=== PATIENT | female | born 1990 | race Caucasian/White ===

== ENCOUNTER 2017-06-02 08:59 | Emergency (ER) | payer OTHER ==
[~2017-06-02] VITALS: Ht 170.2 cm; Wt 87.4 kg
[~2017-06-02 08:59] MED LIST: ALPRAZOLAM0.5 MG PO; BENADRYL25 MG PO; FIORICET 50-301 EACH PO; Glucophage PO; HUMALOG100 UNIT/1 SQ; IBUPROFEN800 MG PO; IMITREX25 MG PO; IMITREX6 MG/0.52 SC; INSULIN PUMP SCCONT; LAMICTAL100 MG PO; LAMICTAL150 M1 PO; METOCLOPRAMIDE10 MG PO; NAPROSYN500 MG PO; NOVOLOG 10100 UNITS/ SC; NOVOLOG MI100 UNIT/4 SC; Non-Formulary SC; PROMETHAZINE HC25 M1 PO; REGLAN10 MG PO; RIZATRIPTAN10 MG PO; TOPAMAX100 MG PO; TOPIRAMATE50 MG PO; TORADOL10 MG PO; Tylenol Regular Stre PO; VENLAFAXINE HC100 MG PO; VENLAFAXINE HC150 M1 PO; VITAMIN D1000 INTUN PO; VITAMIN D31000 UNI2 PO; XANAX0.5 MG PO; ZOFRAN ODT4 MG PO; ZOFRAN4 MG PO
[2017-06-02 09:36] LABS: POINT-OF-CARE METER ID UU13113702
[2017-06-02 11:55] LABS: ADD MIUA? YES; BILIRUBIN NEGATIVE; BLOOD LARGE; COLOR AMBER ((YELLOW)); GLUCOSE (STRIP) 50; KETONES 20; LEUKOCYTES NEGATIVE; NITRITE NEGATIVE; PROTEIN (STRIP) 100; SPECIFIC GRAVITY 1.027 (1.000-1.030); UROBILINOGEN 0.2 MG/DL (0.2-1.0)
[2017-06-02 12:00] LABS: AMPHETAMINE NEGATIVE (500 ng/mL); BENZODIAZEPINES PRESUMPTIVE POSITIVE (150 ng/mL); COCAINE NEGATIVE (150 ng/mL); METHADONE NEGATIVE (200 ng/mL); METHAMPHETAMINE NEGATIVE (500 ng/mL); OPIATES (MORPHINE) NEGATIVE (100 ng/mL); PHENCYCLIDINE NEGATIVE (25 ng/mL); THC CANNABINOIDS PRESUMPTIVE POSITIVE (50 ng/mL); TRICYCLIC ANTIDEPRESSANTS NEGATIVE (300 ng/mL)
[2017-06-02 12:01] LABS: ADD MEDTOX COMMENT Y; BACTERIA 3+ /HPF; BARBITURATES NEGATIVE (200 ng/mL); EPITHELIAL CELLS 3+ /HPF; INTERNAL CONTROLS VALID? YES; MUCUS 4+ /LPF; OXYCODONE NEGATIVE (100 ng/mL); PROPOXYPHENE NEGATIVE (300 ng/mL); UCUL ADDED? YES
[2017-06-02] MEDS ORDERED: MOTRIN600 MG PO (12:08)
[2017-06-02] MEDS ORDERED: ZOFRAN ODT4 MG PO (12:08)
[2017-06-02] MEDS ORDERED: KEFLEX500 MG PO (12:08)
[2017-06-02] MEDS ORDERED: IMITREX25 MG PO (12:15)
[2017-06-02 12:41] VITALS: BP 121/51
[2017-06-02 12:41] LABS: BENZODIAZEPINES QUANT VALUE 0 NG/ML; BENZODIAZEPINES, URINE SCREEN Negative (200 ng/mL)
== END 2017-06-02 12:46 | disposition home or self-care (01) ==
LOC: EME 08:59
PROVIDERS: Nurse Practitioner Family
DX: G43.909 Migraine, unspecified, not intractable, without status migrainosus (principal); N39.0 Urinary tract infection, site not specified; R11.2 Nausea with vomiting, unspecified; E10.9 Type 1 diabetes mellitus without complications; Z79.4 Long term (current) use of insulin; J45.909 Unspecified asthma, uncomplicated; F17.200 Nicotine dependence, unspecified, uncomplicated
CPT/HCPCS: 81003; 82948; 84999; 87086; 99281; 99284; J1200; J1885; J2405; J2765; J7030

== ENCOUNTER 2017-06-04 15:32 | Emergency (ER) | payer OTHER ==
[~2017-06-04] VITALS: Ht 170.2 cm; Wt 95.0 kg
[~2017-06-04 15:32] MED LIST changes: +KEFLEX500 MG PO; +MOTRIN600 MG PO
[2017-06-04] MEDS ORDERED: NAPROSYN500 MG PO (17:05)
[2017-06-04 17:15] VITALS: BP 104/83
== END 2017-06-04 17:41 | disposition home or self-care (01) ==
LOC: EME 15:32
DX: S80.02XA Contusion of left knee, initial encounter (principal); V49.40XA Driver injured in collision with unspecified motor vehicles in traffic accident, initial encounter; Y92.410 Unspecified street and highway as the place of occurrence of the external cause; E10.9 Type 1 diabetes mellitus without complications; Z79.4 Long term (current) use of insulin; F17.200 Nicotine dependence, unspecified, uncomplicated; F31.9 Bipolar disorder, unspecified
CPT/HCPCS: 73564; 99281; 99284; J1885

== ENCOUNTER 2017-06-22 17:28 | Emergency (ER) | payer OTHER ==
[~2017-06-22] VITALS: Ht 170.2 cm; Wt 89.7 kg
[2017-06-22] MEDS ORDERED: CLONAZEPAM0.5 MG PO (18:17)
[2017-06-22] MEDS ORDERED: EFFEXOR XR150 MG PO (18:17)
[2017-06-22] MEDS ORDERED: EFFEXOR XR75 MG PO (18:17)
[2017-06-22 18:42] LABS: EOSINOPHIL (%) 0.1 % (0-5); HEMATOCRIT 41.3 % (36.0-46.0); IMMATURE GRANULOCYTE (%) 0.4 % (0.0-0.7); INSTRUMENT ABS NEUTROPHIL CT 6.5 K/uL; LYMPHOCYTE COUNT 1.3 K/uL (1.0-2.8); MCH 28.2 PG (29.0-34.0); MCHC 32.4 G/DL (30.0-36.0); MCV 86.9 FL (83-99); MEAN PLAT.VOLUME 9.6 uM^3 (9.5-12.4); MONOCYTE COUNT 0.5 K/uL (0-0.8); NEUTROPHIL (%) 77.2 % (45-76); NEUTROPHIL COUNT 6.5 K/uL (1.8-6.4); PLATELET COUNT 297 K/uL (156-360); RBC DIS.WIDTH-CV 14.1 % (11.8-14.6); RBC DIS.WIDTH-SD 45.1 % (39-53); RED BLOOD COUNT 4.75 M/uL (3.80-5.20); WHITE BLOOD COUNT 8.4 K/uL (4.1-10.2)
[2017-06-22 18:58] LABS: CHLORIDE 104 mEq/L (99-109); POTASSIUM 3.8 mEq/L (3.7-5.4); SODIUM 137 mEq/L (136-147)
[2017-06-22 19:00] LABS: GLUCOSE 95 mg/dL (70-99)
[2017-06-22 19:01] LABS: ANION GAP 9 MEQ/L (2-14)
[2017-06-22 19:04] LABS: GFR ESTIMATE (CALCULATED) > 59 mL/min/; UREA NITROGEN (BUN) 11 mg/dL (9-23)
[2017-06-22 19:12] LABS: QUANTITATIVE HCG < 4.0 MIU/ML
[2017-06-22 19:19] LABS: POINT-OF-CARE METER ID UU13113702
[2017-06-22 19:42] LABS: ADD MEDTOX COMMENT Y; AMPHETAMINE NEGATIVE (500 ng/mL); BARBITURATES NEGATIVE (200 ng/mL); BENZODIAZEPINES NEGATIVE (150 ng/mL); COCAINE NEGATIVE (150 ng/mL); INTERNAL CONTROLS VALID? YES; METHADONE NEGATIVE (200 ng/mL); METHAMPHETAMINE NEGATIVE (500 ng/mL); OPIATES (MORPHINE) NEGATIVE (100 ng/mL); OXYCODONE NEGATIVE (100 ng/mL); PHENCYCLIDINE NEGATIVE (25 ng/mL); PROPOXYPHENE NEGATIVE (300 ng/mL); THC CANNABINOIDS PRESUMPTIVE POSITIVE (50 ng/mL); TRICYCLIC ANTIDEPRESSANTS NEGATIVE (300 ng/mL)
[2017-06-22] MEDS ORDERED: CLONIDINE HCL0.1 MG PO (21:05)
[2017-06-22] MEDS ORDERED: ZOFRAN4 MG PO (21:05)
[2017-06-22 21:34] VITALS: BP 98/62
== END 2017-06-22 21:35 | disposition home or self-care (01) ==
LOC: EME 17:28
PROVIDERS: Emergency Medicine
DX: F11.23 Opioid dependence with withdrawal (principal); F11.10 Opioid abuse, uncomplicated; F31.9 Bipolar disorder, unspecified; F32.9 Major depressive disorder, single episode, unspecified; F41.9 Anxiety disorder, unspecified; E11.9 Type 2 diabetes mellitus without complications; Z96.41 Presence of insulin pump (external) (internal); F17.210 Nicotine dependence, cigarettes, uncomplicated
CPT/HCPCS: 70450; 80048; 82948; 84702; 84999; 85025; 99281; 99284; J2405

== ENCOUNTER 2017-07-12 20:42 | Inpatient (IN) | payer OTHER ==
[~2017-07-12] VITALS: Ht 170.2 cm; Wt 91.8 kg
[~2017-07-12 20:42] MED LIST changes: +CLONAZEPAM0.5 MG PO; +CLONIDINE HCL0.1 MG PO; +EFFEXOR XR150 MG PO; +EFFEXOR XR75 MG PO
[2017-07-12 21:13] LABS: BASOPHIL (%) 0.3 % (0-1); EOSINOPHIL (%) 0.2 % (0-5); HEMOGLOBIN 14.2 G/DL (11.9-15.5); IMMATURE GRANULOCYTE (%) 0.5 % (0.0-0.7); LYMPHOCYTE (%) 15.5 % (15-42); LYMPHOCYTE COUNT 2.2 K/uL (1.0-2.8); MCH 28.4 PG (29.0-34.0); MCHC 32.3 G/DL (30.0-36.0); MONOCYTE (%) 5.4 % (3-12); MONOCYTE COUNT 0.8 K/uL (0-0.8); NEUTROPHIL (%) 78.1 % (45-76); NEUTROPHIL COUNT 11.3 K/uL (1.8-6.4); RBC DIS.WIDTH-CV 13.8 % (11.8-14.6); RBC DIS.WIDTH-SD 44.1 % (39-53); WHITE BLOOD COUNT 14.5 K/uL (4.1-10.2)
[2017-07-12 21:14] LABS: PLATELET COUNT 453 K/uL (156-360)
[2017-07-12 21:19] LABS: ALBUMIN 4.1 g/dL (3.2-4.8)
[2017-07-12 21:20] LABS: CHLORIDE 101 mEq/L (99-109); POTASSIUM 3.9 mEq/L (3.7-5.4); SODIUM 139 mEq/L (136-147)
[2017-07-12 21:22] LABS: GLUCOSE 73 mg/dL (70-99); TOTAL PROTEIN 7.9 g/dL (6.4-8.3)
[2017-07-12 21:24] LABS: TOTAL BILIRUBIN 0.6 mg/dL (0.0-1.0)
[2017-07-12 21:25] LABS: ALKALINE PHOSPHATASE 133 IU/L (3-129)
[2017-07-12 21:26] LABS: CREATININE 0.7 mg/dL (0.6-1.3); GFR ESTIMATE (CALCULATED) > 59 mL/min/
[2017-07-12 21:27] LABS: AST (GOT) 38 IU/L (2-34); UREA NITROGEN (BUN) 5 mg/dL (9-23)
[2017-07-12 21:28] LABS: ALT (GPT) 30 IU/L (3-49)
[2017-07-13] MEDS ORDERED: VENLAFAXINE225 MG PO (00:22)
[2017-07-13] MEDS ORDERED: ABILIFY10 MG PO (00:22)
[2017-07-13] MEDS ORDERED: VALACYCLOVIR500 MG PO (00:23)
[2017-07-13] MEDS ORDERED: NAPROSYN500 MG PO (00:25)
[2017-07-13] MEDS ORDERED: MOTRIN600 MG PO (00:26)
[2017-07-13 03:50] LABS: QUANTITATIVE HCG < 4.0 MIU/ML
[2017-07-13 04:08] VITALS: BP 122/70
[2017-07-13 05:17] LABS: BENZODIAZEPINES, URINE SCREEN Negative (200 ng/mL)
[2017-07-13 07:25] LABS: Estimated Average Glucose 189 mg/dL (70-123); HEMOGLOBIN A1c (GLYCOHEMOGLOB) 8.2 % HGB (Below 5.7)
[2017-07-13 07:39] LABS: CHLORIDE 105 MEQ/L (99-109); CREATININE 0.6 MG/DL (0.6-1.3); GFR ESTIMATE (CALCULATED) > 59 mL/min/; POTASSIUM 4.5 MEQ/L (3.7-5.4); SODIUM 135 MEQ/L (136-147); UREA NITROGEN (BUN) 6 mg/dL (9-23)
[2017-07-13 07:46] LABS: GLUCOSE 191 mg/dL (70-99)
[2017-07-13 07:48] LABS: BASOPHIL (%) 0.2 % (0-1); EOSINOPHIL (%) 0.1 % (0-5); HEMATOCRIT 36.3 % (36.0-46.0); IMMATURE GRANULOCYTE (%) 0.2 % (0.0-0.7); LYMPHOCYTE (%) 14.6 % (15-42); LYMPHOCYTE COUNT 1.6 K/uL (1.0-2.8); MCH 27.7 PG (29.0-34.0); MCHC 31.4 G/DL (30.0-36.0); MCV 88.1 FL (83-99); MONOCYTE (%) 3.7 % (3-12); MONOCYTE COUNT 0.4 K/uL (0-0.8); NEUTROPHIL (%) 81.2 % (45-76); NEUTROPHIL COUNT 8.8 K/uL (1.8-6.4); RBC DIS.WIDTH-CV 13.5 % (11.8-14.6); RBC DIS.WIDTH-SD 43.8 % (39-53); RED BLOOD COUNT 4.12 M/uL (3.80-5.20); WHITE BLOOD COUNT 10.8 K/uL (4.1-10.2)
[2017-07-13 07:50] LABS: HEMOGLOBIN 11.4 G/DL (11.9-15.5)
[2017-07-13 08:15] VITALS: BP 99/50
[2017-07-13 08:19] LABS: PLAT.SUFFICIENCY ADEQUATE
[2017-07-13 08:20] LABS: PLATELET COUNT 297 K/uL (156-360)
[2017-07-13 13:30] VITALS: BP 92/50
[2017-07-13 15:49] VITALS: BP 102/63
[2017-07-13 19:50] VITALS: BP 119/56
[2017-07-13 23:55] VITALS: BP 96/54
[2017-07-14] VITALS (7 sets, daily range): BP systolic 85–124; BP diastolic 55–79
[2017-07-14 07:14] LABS: HEMATOCRIT 33.5 % (36.0-46.0); HEMOGLOBIN 10.6 G/DL (11.9-15.5); MCH 28.3 PG (29.0-34.0); MCHC 31.6 G/DL (30.0-36.0); MCV 89.6 FL (83-99); PLATELET COUNT 272 K/uL (156-360); RBC DIS.WIDTH-CV 13.4 % (11.8-14.6); RBC DIS.WIDTH-SD 44.2 % (39-53); RED BLOOD COUNT 3.74 M/uL (3.80-5.20); WHITE BLOOD COUNT 8.9 K/uL (4.1-10.2)
[2017-07-14 07:52] LABS: ALBUMIN 2.9 G/DL (3.2-4.8); ALKALINE PHOSPHATASE 93 IU/L (3-129); ALT (GPT) 24 IU/L (3-49); AST (GOT) 28 IU/L (2-34); CHLORIDE 109 MEQ/L (99-109); CREATININE 0.5 MG/DL (0.6-1.3); GFR ESTIMATE (CALCULATED) > 59 mL/min/; SODIUM 139 MEQ/L (136-147); TOTAL BILIRUBIN 0.4 MG/DL (0.0-1.0); TOTAL PROTEIN 4.9 G/DL (6.4-8.3); UREA NITROGEN (BUN) 4 mg/dL (9-23)
[2017-07-14 07:53] LABS: GLUCOSE 52 mg/dL (70-99)
[2017-07-14 10:54] LABS: VANCOMYCIN, TROUGH 6.3 MCG/ML (10-20)
[2017-07-14 11:08] LABS: HEPATITIS B SURFACE ANTIGEN Nonreactive; HEPATITIS C ANTIBODY Nonreactive
[2017-07-14 11:10] LABS: ANTI-HEPATITIS A VIRUS (IGM) Nonreactive; ANTI-HEPATITIS B CORE (IGM) Nonreactive
[2017-07-15 04:06] VITALS: BP 97/63
[2017-07-15 06:35] LABS: BASOPHIL (%) 0.4 % (0-1); EOSINOPHIL (%) 1.4 % (0-5); EOSINOPHIL COUNT 0.1 K/uL (0-0.3); HEMATOCRIT 34.4 % (36.0-46.0); IMMATURE GRANULOCYTE (%) 0.4 % (0.0-0.7); LYMPHOCYTE (%) 33.8 % (15-42); LYMPHOCYTE COUNT 2.4 K/uL (1.0-2.8); MCH 28.1 PG (29.0-34.0); MONOCYTE (%) 8.3 % (3-12); MONOCYTE COUNT 0.6 K/uL (0-0.8); NEUTROPHIL (%) 55.7 % (45-76); PLATELET COUNT 323 K/uL (156-360); RBC DIS.WIDTH-CV 13.2 % (11.8-14.6); RBC DIS.WIDTH-SD 42.9 % (39-53); RED BLOOD COUNT 3.91 M/uL (3.80-5.20); WHITE BLOOD COUNT 7.2 K/uL (4.1-10.2)
[2017-07-15 07:13] LABS: CHLORIDE 111 MEQ/L (99-109); CREATININE 0.7 MG/DL (0.6-1.3); GFR ESTIMATE (CALCULATED) > 59 mL/min/; MAGNESIUM 1.6 mg/dl (1.3-2.7); POTASSIUM 4.1 MEQ/L (3.7-5.4); SODIUM 141 MEQ/L (136-147); UREA NITROGEN (BUN) 7 mg/dL (9-23)
[2017-07-15 07:14] LABS: GLUCOSE 130 mg/dL (70-99)
[2017-07-15 07:42] VITALS: BP 116/75
[2017-07-15] MEDS ORDERED: BACTRIM,SEPT1 TABLET PO (09:42)
[2017-07-15] MEDS ORDERED: BUPRENORPHINE HC8 MG SL (10:37)
== END 2017-07-15 13:40 | disposition home or self-care (01) | DRG 603 ==
LOC: EME 20:42 → 5SOUTH 07-13 02:50 → EDOF 07-13 02:50 → ENRESERV 07-13 02:51 → 5SOUTH 07-13 03:33 → ENPENDDIS 07-15 → 5SOUTH 07-15 13:40
PROVIDERS: Hospitalist; Internal Medicine; Physician Assistant
PROC: 0J9D3ZZ Drainage of Right Upper Arm Subcutaneous Tissue and Fascia, Percutaneous Approach (ICD-10-PCS; principal; 2017-07-13)
DX: L02.413 Cutaneous abscess of right upper limb (principal); L03.113 Cellulitis of right upper limb; G43.909 Migraine, unspecified, not intractable, without status migrainosus; F11.20 Opioid dependence, uncomplicated; F31.9 Bipolar disorder, unspecified; J45.909 Unspecified asthma, uncomplicated; Z96.41 Presence of insulin pump (external) (internal); Z79.4 Long term (current) use of insulin; E10.9 Type 1 diabetes mellitus without complications; F17.210 Nicotine dependence, cigarettes, uncomplicated; Z83.3 Family history of diabetes mellitus
CPT/HCPCS: 73201; 80048; 80053; 80074; 80202; 80306 90; 82948; 83036; 83605; 83735; 84702; 85025; 85027; 87040; 87070; 87075; 87076; 87205; 93971; 99281; 99285; J0574; J1650; J1885; J2270; J2405; J2543; J2765; J3370; J7030; J7050

== ENCOUNTER 2017-08-05 05:56 | Emergency (ER) | payer OTHER ==
[~2017-08-05] VITALS: Ht 170.2 cm; Wt 88.5 kg
[~2017-08-05 05:56] MED LIST changes: +ABILIFY10 MG PO; +BACTRIM,SEPT1 TABLET PO; +BUPRENORPHINE HC8 MG SL; +VALACYCLOVIR500 MG PO; +VENLAFAXINE225 MG PO
[2017-08-05 06:04] VITALS: BP 130/82
[2017-08-05 06:31] LABS: HEMATOCRIT 41.2 % (36.0-46.0); MCHC 32.5 G/DL (30.0-36.0); PLATELET COUNT 305 K/uL (156-360); RBC DIS.WIDTH-CV 13.7 % (11.8-14.6); RBC DIS.WIDTH-SD 43.4 % (39-53); WHITE BLOOD COUNT 12.3 K/uL (4.1-10.2)
[2017-08-05 06:39] LABS: ALBUMIN 3.8 g/dL (3.2-4.8)
[2017-08-05 06:40] LABS: CHLORIDE 103 mEq/L (99-109); POTASSIUM 5.3 mEq/L (3.7-5.4); SODIUM 132 mEq/L (136-147)
[2017-08-05 06:42] LABS: TOTAL PROTEIN 6.6 g/dL (6.4-8.3)
[2017-08-05 06:44] LABS: TOTAL BILIRUBIN 0.3 mg/dL (0.0-1.0)
[2017-08-05 06:45] LABS: ALKALINE PHOSPHATASE 148 IU/L (3-129)
[2017-08-05 06:46] LABS: CREATININE 1.1 mg/dL (0.6-1.3); GFR ESTIMATE (CALCULATED) > 59 mL/min/
[2017-08-05 06:47] LABS: AST (GOT) 18 IU/L (2-34); GLUCOSE 640 mg/dL (70-99); UREA NITROGEN (BUN) 16 mg/dL (9-23)
[2017-08-05 06:48] LABS: ALT (GPT) 13 IU/L (3-49)
[2017-08-05 06:58] LABS: HEMOGLOBIN 13.4 G/DL (11.9-15.5); RED BLOOD COUNT 4.79 M/uL (3.80-5.20)
== END 2017-08-05 07:30 | disposition left against medical advice (07) ==
LOC: EME 05:56
DX: E10.65 Type 1 diabetes mellitus with hyperglycemia (principal); R11.0 Nausea; Z96.41 Presence of insulin pump (external) (internal); Z79.4 Long term (current) use of insulin; Z53.21 Procedure and treatment not carried out due to patient leaving prior to being seen by health care provider
CPT/HCPCS: 80053; 81003; 85027